=== PATIENT | female | born 1945 | race Caucasian/White ===

== ENCOUNTER → 2017-11-14 | Outpatient (CLI) | payer OTHER ==
[~2017-11-14] MED LIST: ARIP2TAB3 PO; ATOR10 PO; CITA10TA13 PO; CLON1TAB PO; FEXO1TAB8 PO; METO25TA3 PO; NAPR220C15 PO; VIT1TABL66 PO
== END | disposition home or self-care (01) ==
LOC: RAH 09:40
PROVIDERS: ATTEND Internal Medicine Endocrinology, Diabetes & Metabolism
DX: E05.20 Thyrotoxicosis with toxic multinodular goiter without thyrotoxic crisis or storm (principal)
CPT/HCPCS: 76536; 78014; A9516

== ENCOUNTER → 2018-07-21 | Outpatient (CLI) | payer OTHER | END | disposition home or self-care (01) | LOC: RAH 12:45 | PROVIDERS: ATTEND Internal Medicine Endocrinology, Diabetes & Metabolism | DX: E04.2 Nontoxic multinodular goiter (principal); Z72.89 Other problems related to lifestyle | CPT/HCPCS: 76536 ==

== ENCOUNTER → 2019-06-10 | Outpatient (CLI) | payer OTHER | END | disposition home or self-care (01) | LOC: RAH 10:41 | PROVIDERS: ATTEND Internal Medicine Endocrinology, Diabetes & Metabolism | DX: E04.2 Nontoxic multinodular goiter (principal) | CPT/HCPCS: 76536 ==

== ENCOUNTER → 2019-11-18 | Outpatient (CLI) | payer OTHER | END | disposition home or self-care (01) | LOC: RAH 10:51 | PROVIDERS: ATTEND Internal Medicine Endocrinology, Diabetes & Metabolism | DX: E04.2 Nontoxic multinodular goiter (principal) | CPT/HCPCS: 76536 ==

== ENCOUNTER → 2020-09-21 | Outpatient (CLI) | payer MEDICARE | END | disposition home or self-care (01) | LOC: RAH 10:47 | PROVIDERS: ATTEND Internal Medicine Endocrinology, Diabetes & Metabolism | DX: E04.2 Nontoxic multinodular goiter (principal) | CPT/HCPCS: 76536 ==

== ENCOUNTER → 2022-09-24 | Outpatient (CLI) | payer MEDICARE | END | disposition home or self-care (01) | LOC: SHCH 10:56 | PROVIDERS: ATTEND Internal Medicine Cardiovascular Disease | DX: I11.9 Hypertensive heart disease without heart failure (principal); I20.9 Angina pectoris, unspecified; E78.5 Hyperlipidemia, unspecified | CPT/HCPCS: 93306 ==

== ENCOUNTER 2023-03-01 10:46 | Emergency (ER) | payer MEDICARE ==
[~2023-03-01] VITALS: Ht 154.9 cm; Wt 70.3 kg
[2023-03-01] MEDS ORDERED: OXYCODONE/ACETAMIN 5/325MG TAB PO ONE (11:30)
[2023-03-01] MEDS ORDERED: ONDANSETRON ODT 4MG TAB SL ONE (11:30)
[2023-03-01] MEDS ORDERED: ONDA4TAB10 PO (13:12)
[2023-03-01] MEDS ORDERED: OXYC-38 PO (13:12)
[2023-03-01 13:18] VITALS: BP 126/66
== END 2023-03-01 13:18 | disposition home or self-care (01) ==
LOC: EDH 10:46
DX: R51.9 Headache, unspecified (principal); F41.9 Anxiety disorder, unspecified; E78.00 Pure hypercholesterolemia, unspecified; I10 Essential (primary) hypertension; Z79.899 Other long term (current) drug therapy
CPT/HCPCS: 70450; 93005

== ENCOUNTER 2023-03-06 05:36 | Emergency (ER) | payer MEDICARE ==
[~2023-03-06] VITALS: Ht 154.9 cm; Wt 70.3 kg
[~2023-03-06 05:36] MED LIST changes: +ONDA4TAB10 PO; +OXYC-38 PO
[2023-03-06 06:53] LABS: BASOPHILS % (AUTO) 0.4 % (0.0-5.0); EOSINOPHILS % (AUTO) 0.4 % (0.0-8.0); HEMATOCRIT 41.3 % (36-48); MEAN CORPUSCULAR HEMOGLOBIN 31.5 pg (27.0-33.0); MEAN CORPUSCULAR HGB CONC 35.1 g/dL (32.0-36.0); MEAN CORPUSCULAR VOLUME 89.6 fL (79-99); MONOCYTES % (AUTO) 9.3 % (3.0-13.0); NEUTROPHILS % (AUTO) 66.6 % (40.0-77.0); PLATELET COUNT (AUTO) 272 K/uL (130-400); RED BLOOD CELL COUNT(AUTO) 4.61 MIL/uL (4.00-5.50); RED CELL DISTRIBUTION WIDTH 12.7 % (11.0-15.5)
[2023-03-06 06:54] LABS: APPEARANCE,URINE CLEAR (CLEAR); BILIRUBIN,URINE NEGATIVE (NEGATIVE); COLOR,URINE COLORLESS (YELLOW); GLUCOSE, URINE (UA) NEGATIVE (NEGATIVE); KETONES,URINE NEGATIVE (NEGATIVE); LEUKOCYTE ESTERASE ,URINE 250 Leu/uL (NEGATIVE); NITRATE,URINE NEGATIVE (NEGATIVE); OCCULT BLOOD,URINE NEGATIVE (NEGATIVE); PH,URINE 6.5 (5.0-8.0); PROTEIN,URINE NEGATIVE (NEGATIVE); UROBILINOGEN,URINE 0.2 mg/dL (0.2-1.0)
[2023-03-06 07:07] LABS: RBC,URINE 0-1 /HPF (0-1); SQUAMOUS EPITHELIAL CELL,UR RARE /HPF (0-2); TRANSITIONAL EPI CELLS,URINE RARE /HPF (None Seen)
[2023-03-06] MEDS ORDERED: HYDROXYZINE 25 MG TABLET PO ONE (07:30)
[2023-03-06 07:38] VITALS: BP 138/51
[2023-03-06 07:52] LABS: ALBUMIN 3.9 g/dL (3.5-5.0); CREATININE 0.9 mg/dL (0.5-1.5); POTASSIUM 3.3 mmol/L (3.5-5.1); TOTAL PROTEIN, SERUM 7.1 g/dL (6.0-8.3)
[2023-03-06] MEDS ORDERED: POTASSIUM BICARB/CIT AC 25 MEQ TABLET.EFF PO ONE (08:30)
[2023-03-06] MEDS ORDERED: CEFTRIAXONE 2GM VIAL IVPB ONE (08:30)
[2023-03-06] MEDS ORDERED: MACR100 PO (08:38)
[2023-03-06] MEDS ORDERED: MECL-160 PO (08:38)
[2023-03-06] MEDS ORDERED: HYDR50CA50 PO (08:38)
== END 2023-03-06 08:52 | disposition home or self-care (01) ==
LOC: EDH 05:36
DX: F41.9 Anxiety disorder, unspecified (principal); E87.6 Hypokalemia; N39.0 Urinary tract infection, site not specified; G44.209 Tension-type headache, unspecified, not intractable; E78.00 Pure hypercholesterolemia, unspecified; I10 Essential (primary) hypertension; G43.909 Migraine, unspecified, not intractable, without status migrainosus; Z90.710 Acquired absence of both cervix and uterus; Z79.899 Other long term (current) drug therapy
CPT/HCPCS: 36415; 71045; 80053; 81001; 84443; 84484; 85025; 93005

== ENCOUNTER → 2023-04-30 | Outpatient (CLI) | payer MEDICARE ==
[~2023-04-30] MED LIST changes: +HYDR50CA50 PO; +MACR100 PO; +MECL-160 PO
== END | disposition home or self-care (01) ==
LOC: RAH 11:05
PROVIDERS: ATTEND Internal Medicine Endocrinology, Diabetes & Metabolism
DX: E04.2 Nontoxic multinodular goiter (principal); E04.1 Nontoxic single thyroid nodule
CPT/HCPCS: 76536

== ENCOUNTER → 2024-06-29 | Outpatient (CLI) | payer MEDICARE ==
[~2024-06-29] MED LIST changes: +ATOR10TA69 PO; -CLON1TAB PO; +CLON1TAB2 PO; +ESCI-8 PO; +FLEC50TA3 PO; +FLUD0.1T2 PO; +IOHEXOL 350 MG/ML 100ML INFUS..BTL IV ONE; -MECL-160 PO; +MECL-302 PO; +METH-386 PO; +ONDA-243 PO; -ONDA4TAB10 PO; +PIND10TA2 PO; +POTA-202 PO; +TRAZ-185 PO
== END | disposition home or self-care (01) ==
LOC: RAH 08:31
PROVIDERS: ATTEND Internal Medicine Cardiovascular Disease
DX: I25.119 Atherosclerotic heart disease of native coronary artery with unspecified angina pectoris (principal); R07.9 Chest pain, unspecified
CPT/HCPCS: 75574; Q9967

== ENCOUNTER → 2024-12-01 | Outpatient (CLI) | payer MEDICARE ==
[~2024-12-01] MED LIST changes: -ARIP2TAB3 PO; -ATOR10 PO; -CITA10TA13 PO; -CLON1TAB2 PO; -FEXO1TAB8 PO; -HYDR50CA50 PO; -IOHEXOL 350 MG/ML 100ML INFUS..BTL IV ONE; -MACR100 PO; -MECL-302 PO; -METO25TA3 PO; -NAPR220C15 PO; -ONDA-243 PO; -OXYC-38 PO; -VIT1TABL66 PO
[2024-12-01 12:38] LABS: CREATININE 0.8 mg/dL (0.5-1.0); MAGNESIUM 2.1 mg/dL (1.80-2.40)
== END | disposition home or self-care (01) ==
LOC: LAB 10:34
PROVIDERS: ATTEND Physician Assistant
DX: I95.1 Orthostatic hypotension (principal)
CPT/HCPCS: 36415; 80048; 83735